=== PATIENT | male | born 1945 | race Caucasian/White ===

== ENCOUNTER → 2020-06-12 | Outpatient (CLI) | payer MEDICARE ==
--- NOTE | 2020-06-12 11:02 | MR ---
EXAMINATION TYPE: MR Prostate wo/w con DATE OF EXAM: 06/12/2020 COMPARISON: None. IMAGE QUALITY: . INDICATION: Elevated PSA PSA: 7.4 ng/ml on November 08, 2019 Recent Biopsy and Date: March 11, 2019 Pathology Report (If Applicable): All levels benign TECHNIQUE: Examination was performed using a 3T MRI without an endorectal coil. Multiparametric imaging was perf ormed with T2 mutliplanar sequences, axial diffusion weighted imaging and dynamic contrast enhanced i maging, utilizing 7 mL intravenous Gadavist gadolinium contrast. FINDINGS: There is no clinically significant cancer identified. PROSTATE VOLUME: 5.1 cm SI x 3.5 cm AP x 6.0 cm LR Vol= 56.1 cc Predicted PSA: 6.732 PSA DENSITY: 0.13 ng/ml/cc Site 1: Assessment Category:5 Size: 21 x 8 x 10 mm Location(s):left base medial Focal markedly hypointense area with hyperintensity on diffusion-weighted images. Reference image 304 series 605 has lateral extension with bulging of capsule and likely extracapsular spread axial image 23 near the origin of left-sided seminal vesicle. Area could reflect low positioning of the medial a spect left seminal vesicle but remains suspicious and repeat sampling is warranted. T2-weighted images show central transitional zone compatible wall heterogeneity without areas of susp icious low T2 signal. Urinary bladder shows mild wall thickening and trabeculation. No concerning pelvic adenopathy. Visual ized osseous structures are intact. Small fat-containing left inguinal hernia incidentally noted. IMPRESSION: A focus of clinically significant cancer is identified. Highest Assessment Category: 5 MRI Stage: T3 N0 M0 based on review of pelvic images. False negative rates for MRI range from 5-20% depending on risk profile. Assessment Categories: 1 ? Very low (clinically significant cancer is highly unlikely to be present) 2 ? Low (clinically significant cancer is unlikely to be present) 3 ? Intermediate (the presence of clinically significant cancer is equivocal) 4 ? High (clinically significant cancer is likely to be present) 5 ? Very high (clinically significant cancer is highly likely to be present)
== END | disposition home or self-care (01) ==
LOC: RADMRIMAIN 09:22
PROVIDERS: ATTEND Urology
DX: R97.20 Elevated prostate specific antigen [PSA] (principal)
CPT/HCPCS: 72197; A9585

== ENCOUNTER → 2022-05-23 | Outpatient (CLI) | payer MEDICARE ==
--- NOTE | 2022-05-23 12:22 | MR ---
EXAMINATION TYPE: MR Prostate wo/w con DATE OF EXAM: 05/23/2022 9:19 AM COMPARISON: MR prostate 06/12/2020. CLINICAL INDICATION:Male, 77 years old with history of C61 PROSTATE CANCER TECHNIQUE: Multi-planar, multi-sequence imaging of the pelvis is performed prior to and following the uncomplicated administration of bolus intravenous gadolinium. CONTRAST: 7 Gadavist Interpretive Criteria: PI-RADS v2.1 SERUM PSA: 26.0 on 09/11/2021. 16.99 on 03/26/2022. SURGICAL PATHOLOGY: 08/07/2020 positive right mid, Patrick 3+3, 6, 03/11/2019, benign FINDINGS: Prostatic dimensions: 6.2 x 4.3 x 4.0 cm. Ellipsoid Volume: 55.84 (PSA density=0.30 ng/mL/mL) CENTRAL GLAND (Central and Transition Zones/CZ+TZ): Multiple bilateral, heterogenous appearing hypertrophic stromal nodules, without suspicious lesion. I ntrinsic high T1 focus within the left central gland likely sequela of prior hemorrhage from biopsy u nder prostatitis. (PI-RADS 2) PERIPHERAL ZONE (PZ): There is a low T2 signal/high DWI/low ADC lesion in the left posterior peripheral gland measuring up to 2.0 x 1.8 x 1.2 cm located in the base/mid gland (previously 1.4 x 1.0 x 1.1 cm on 06/12/2020). This extends along the capsule up to 2.0 x 1.7 cm. There is somewhat ill-defined margins extending from t his peripheral gland to the seminal vesicles on the left. PI-RADS 5. The remainder of the gland demon strates scarring changes without additional suspicious lesion. SEMINAL VESICLES (SV): Diffusely collapse or atrophic, bilaterally. Low signal extends from the left peripheral gland PI-RAD S 5 lesion into the medial aspect of the left seminal vesicles. PERIPROSTATIC TISSUES: Unremarkable. LYMPH NODES: No enlarged pelvic lymph node. REMAINING PELVIS: Circumferential bladder wall thickening with trabeculations likely secondary to chronic bladder outfl ow obstruction. No abnormal free or organized intrapelvic fluid collection. No pathologic bowel dilation or mural thickening. Fat-containing left inguinal hernia. Trace bilateral hydroceles. Scattered clonic diverticula. OSSEOUS STRUCTURES: No suspicious osseous abnormality. IMPRESSION: 1. PI-RADS 5 lesion which has increased in size located in the posterior left peripheral zone extendi ng from mid gland to base and along the capsule. Additional findings suspicious for local invasion in to the left seminal vesicles. This could be further confirmed with gallium-68 PSMA PET/CT. 2. Moderate BPH, estimated gland volume 56 mL. 3. No suspicious osseous lesion. No lymphadenopathy.
== END | disposition home or self-care (01) ==
LOC: RADMRIMAIN 08:22
PROVIDERS: ATTEND Urology
DX: C61 Malignant neoplasm of prostate (principal); N40.0 Benign prostatic hyperplasia without lower urinary tract symptoms
CPT/HCPCS: 72197; A9585

== ENCOUNTER → 2022-07-12 | Outpatient (CLI) | payer MEDICARE ==
--- NOTE | 2022-07-12 16:59 | PE ---
EXAMINATION TYPE: PET CT fusion skull to thigh DATE OF EXAM: 07/12/2022 COMPARISON: MRI prostate May 23, 2022 HISTORY: Prostate cancer TECHNIQUE: Following the intravenous administration of mCi of Ga-68 Illuccix (PSMA),whole body imag es are performed from the skull base to the midthigh. Images are reviewed on the computer in the cor onal, axial, and sagittal planes. Reconstructed rotating images are created on independent workstati on and reviewed on the computer. A noncontrast CT is performed in conjunction with the PET scan. SCAN: Initial Scan FINDINGS: SKULL BASE AND NECK: Normal physiologic uptake in the parotid and submandibular along with the lacri mal glands and salivary glands. No suspicious radiotracer activity. CHEST, MEDIASTINUM, AND HILAR REGION: No suspicious radiotracer activity. ABDOMEN AND PELVIS: Normal mild diffuse uptake in the liver and spleen. Normal uptake in the bilatera l kidneys including cortex. There is nonspecific bowel uptake seen bilaterally. Normal excretion is p resent. There is abnormal hypermetabolic uptake in the left mid base corresponding to the area of concern on recent MRI along the posterior aspect, max SUV is. Adjacent calcification in the midline is redemonst rated. No additional areas of abnormal radiotracer activity including possible pelvic lymph nodes. OSSEOUS STRUCTURES: No areas of abnormal radiotracer activity. OTHER CT: Prominent central parapelvic cyst in the left kidney are seen. Prostate gland is enlarged i n size consistent with BPH. IMPRESSION: PET/CT exam correlates with recent MRI suspicious lesion posterior left peripheral zone mid to basila r level. No abnormal adenopathy or metastatic disease is seen.
== END | disposition home or self-care (01) ==
LOC: RADPETMAIN 11:36
PROVIDERS: ATTEND Radiology Radiation Oncology
DX: C61 Malignant neoplasm of prostate (principal)
CPT/HCPCS: 78815; A9596

== ENCOUNTER → 2023-08-06 | Outpatient (CLI) | payer MEDICARE ==
[2023-08-06 18:56] LABS: Prostate Specific Antigen 0.02 ng/mL (0.000-6.500); Testosterone <10.00 ng/dL (86.98-780.10)
== END | disposition home or self-care (01) ==
LOC: LABWHC1 10:57
PROVIDERS: ATTEND Radiology Radiation Oncology
DX: C61 Malignant neoplasm of prostate (principal)
CPT/HCPCS: 36415; 84153; 84403

== ENCOUNTER 2023-10-10 13:49 | Day surgery (SDC) | payer MEDICARE ==
[2023-10-10] MEDS: LACTATED RINGERS 1,000 ML IV ONE (15:57)
[2023-10-10] MEDS ORDERED: LACTATED RINGERS 1,000 ML IV SCH (15:59)
[2023-10-10] MEDS ORDERED: LIDOCAINE 1% (10MG/ML) FOR IV START INTRADERMA PRN (15:59)
[2023-10-10 16:47] VITALS: TEMP 97
[2023-10-10] MEDS ORDERED: PROPOFOL 10 MG/ML 20 ML VIAL IV ONE (16:48)
--- NOTE | 2023-10-10 17:10 | P.PCN ---
Date of Procedure: 10/10/23 Procedure(s) Performed: BRIEF HISTORY: Patient is a 78-year-old pleasant white male scheduled for an elective colonoscopy as a part of screening for colon cancer. PROCEDURE PERFORMED: Colonoscopy. PREOPERATIVE DIAGNOSIS: Screening for colon cancer. IV sedation per Anesthesia. PROCEDURE: After informed consent was obtained, the patient, was brought into the endoscopy unit. IV sedation was administered by Anesthesia under continuous monitoring. Digital rectal examination was normal. Initially the Olympus CF-160 flexible video colonoscope was then inserted in the rectum, gradually advanced into the cecum without any difficulty. Careful examination was performed as the scope was gradually being withdrawn. Ileocecal valve and the appendiceal orifice were visualized and appeared normal. Prep was excellent. Mucosa of the cecum, ascending colon, transverse colon, descending colon, sigmoid colon, and rectum appeared normal. Retroflexion was performed in the rectum and there is scattered telangiectasia in the distal rectum that were nonbleeding consistent with radiation proctitis.. The patient tolerated the procedure well. 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 RECOMMENDATIONS: Findings of this examination were discussed with the patient as well as his family. He was advised to be on high-fiber diet and avoid straining and constipation..
[2023-10-10 18:06] VITALS: BP 146/77; PULSE 66; RESP 17
== END 2023-10-10 17:45 | disposition home or self-care (01) ==
LOC: ORWHC2ENDO 13:49
PROVIDERS: ATTEND Internal Medicine Gastroenterology
DX: Z12.11 Encounter for screening for malignant neoplasm of colon (principal); K62.7 Radiation proctitis; E78.5 Hyperlipidemia, unspecified; Z79.899 Other long term (current) drug therapy; Z88.5 Allergy status to narcotic agent; Z87.891 Personal history of nicotine dependence; Z98.890 Other specified postprocedural states
CPT/HCPCS: J2704; G0121

== ENCOUNTER 2024-06-13 16:35 | Inpatient (IN) | payer MEDICARE ==
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
[2024-06-13] MEDS: HYDROmorphone 0.5 MG/0.5 ML SYRINGE IVP STA (16:51)
[2024-06-13] MEDS: SODIUM CHLORIDE 0.9% 1,000 ML IV STA (16:51)
[2024-06-13] MEDS: ONDANSETRON 4 MG/2 ML VIAL IVP STA (16:51)
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
[2024-06-13 17:18] LABS: Basophils % (A) 0 %; Eosinophils # (A) 0.1 k/uL (0-0.7); Eosinophils % (A) 1 %; HCT 31.5 % (39.0-53.0); HGB 10.7 gm/dL (13.0-17.5); Lymphocytes # (A) 0.7 k/uL (1.0-4.8); Lymphocytes % (A) 9 %; MCH 32.7 pg (25.0-35.0); MCHC 33.9 g/dL (31.0-37.0); MCV 96.3 fL (80.0-100.0); Mean Platelet Volume 7.7; Monocytes # (A) 0.3 k/uL (0-1.0); Monocytes % (A) 4 %; Neutrophils # (A) 6.4 k/uL (1.3-7.7); Neutrophils % (A) 85 %; Platelet Count 216 k/uL (150-450); RBC 3.27 m/uL (4.30-5.90); WBC 7.5 k/uL (3.8-10.6)
[2024-06-13 17:35] LABS: ALT 20 U/L (4-49); AST 24 U/L (17-59); African American GFR (CKD) >90 (>60 ml/min/1.73 sqM); Albumin 3.5 g/dL (3.5-5.0); Alcohol <10 mg/dL; Alkaline Phosphatase 75 U/L (38-126); Anion Gap 9 mmol/L; Blood Urea Nitrogen 32 mg/dL (9-20); Calcium 8.3 mg/dL (8.4-10.2); Carbon Dioxide 21 mmol/L (22-30); Chloride 106 mmol/L (98-107); Glucose 161 mg/dL (74-99); Non-African American GFR(CKD) 78 (>60 ml/min/1.73 sqM); Potassium 4.4 mmol/L (3.5-5.1); Sodium 136 mmol/L (137-145); Total Bilirubin 0.4 mg/dL (0.2-1.3); Total Protein 6.8 g/dL (6.3-8.2)
[2024-06-13 17:43] LABS: Glucose,Whole Blood 150 mg/dL (70-110)
[2024-06-13 17:49] LABS: Prothrombin Time 10.6 sec (10.0-12.5)
[2024-06-13 18:04] LABS: Partial Thromboplastin Time 18.7 sec (22.0-30.0)
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
[2024-06-13] MEDS ORDERED: ONDANSETRON 4 MG/2 ML VIAL IVP PRN (19:59)
[2024-06-13] MEDS ORDERED: NALOXONE 0.4 MG/ML 1 ML VIAL IV PRN (19:59)
[2024-06-13] MEDS: HYDROmorphone 0.5 MG/0.5 ML SYRINGE IVP PRN (20:53)
[2024-06-13] MEDS: DIPH,PERTUS(ACELL)TETVAC-LF 0.5 ML VIAL IM ONE (20:55)
[2024-06-13] MEDS: SODIUM CHLORIDE 0.9% 1,000 ML IV SCH (20:58)
--- NOTE | 2024-06-13 21:34 | XR ---
EXAMINATION TYPE: XR femur LT, XR tibia fibula LT DATE OF EXAM: 06/13/2024 9:14 PM COMPARISON: None. CLINICAL INDICATION: Male, 79 years old with history of pain; [facility] TECHNIQUE: XR femur LT, XR tibia fibula LT examined in Frontal and lateral projections. FINDINGS: Left femur: No evidence of acute osseous pathology, joint dislocation, or soft tissue swelling. Left tibia/fibula: Cortical step off in the medial tibial plateau suspicious for a minimally displaced fracture. Ankle a ppears intact as visualized. No unexpected radiographic body. IMPRESSION: Minimally displaced fracture of the medial tibial plateau. [facility], , 06/13/2024 9:32 PM
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
[2024-06-14] MEDS: LOSARTAN 50 MG TAB PO SCH (00:35)
[2024-06-14 01:27] LABS: Appearance,Urine Clear (Clear); Bilirubin,Urine Negative (Negative); Blood,Urine Negative (Negative); Color,Urine Light Yellow; Glucose,Urine (UA) Negative (Negative); Ketones,Urine 2+ (Negative); Leukocyte Esterase,Urine Negative (Negative); Nitrite,Urine Negative (Negative); PH, Urine 5.5 (5.0-8.0); Protein,Urine Negative (Negative); Urobilinogen,Urine <2.0 mg/dL (<2.0)
[2024-06-14 01:36] LABS: Specific Gravity,Urine 1.047 (1.001-1.035)
[2024-06-14 01:39] LABS: Amphetamine Screen,Urine Not Detected (NotDetected); Barbiturate Screen,Urine Not Detected (NotDetected); Benzodiazepines Screen,Urine Not Detected (NotDetected); Cocaine Screen,Urine Not Detected (NotDetected); Methadone Screen, Urine Not Detected (NotDetected); Opiate Screen,Urine Detected (NotDetected); Oxycodone Screen, Urine Not Detected (NotDetected); Phencyclidine Screen,Urine Not Detected (NotDetected); Tricyclic Antidepressant,Urine Not Detected (NotDetected); Urn Cannabinoid Scrn Not Detected (NotDetected)
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
[2024-06-14 10:57] LABS: HCT 28.1 % (39.0-53.0); HGB 9.5 gm/dL (13.0-17.5); MCH 32.9 pg (25.0-35.0); MCHC 33.7 g/dL (31.0-37.0); MCV 97.6 fL (80.0-100.0); Mean Platelet Volume 7.8; Platelet Count 201 k/uL (150-450); RBC 2.88 m/uL (4.30-5.90); RDW 12.2 % (11.5-15.5); WBC 6.6 k/uL (3.8-10.6)
[2024-06-14 11:08] LABS: AST 25 U/L (17-59); African American GFR (CKD) 89 (>60 ml/min/1.73 sqM); Albumin 3.4 g/dL (3.5-5.0); Alkaline Phosphatase 65 U/L (38-126); Anion Gap 11 mmol/L; Blood Urea Nitrogen 30 mg/dL (9-20); Calcium 8.3 mg/dL (8.4-10.2); Carbon Dioxide 23 mmol/L (22-30); Chloride 102 mmol/L (98-107); Globulin 3.3 g/dL; Glucose 226 mg/dL (74-99); Magnesium 2.1 mg/dL (1.6-2.3); Non-African American GFR(CKD) 77 (>60 ml/min/1.73 sqM); Potassium 4.1 mmol/L (3.5-5.1); Sodium 136 mmol/L (137-145); Total Bilirubin 0.4 mg/dL (0.2-1.3); Total Protein 6.7 g/dL (6.3-8.2)
[2024-06-14 11:14] LABS: ALT 27 U/L (4-49)
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
[2024-06-14] MEDS: ACETAMINOPHEN TAB 325 MG TAB PO PRN (19:11)
[2024-06-14] MEDS: ATORVASTATIN 20 MG TAB PO SCH (20:54)
[2024-06-14] MEDS: LOSARTAN-HCTZ 50-12.5 MG 1 EACH TAB PO SCH (20:58)
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
[2024-06-15 10:49] LABS: HCT 25.7 % (39.6-50.0); HGB 8.5 g/dL (13.0-17.0); MCH 31.8 pg (27.0-32.0); MCHC 33.1 g/dL (32.0-37.0); MCV 96.3 FL (80.0-97.0); Mean Platelet Volume 9.8 FL (9.5-12.2); NRBC Per 100 WBC 0 X 10*3/uL (0.00-0.01); Platelet Count 144 X 10*3/uL (140-440); RBC 2.67 X 10*6/uL (4.40-5.60); RDW 12.2 % (11.5-14.5); WBC 6.37 X 10*3/uL (4.50-10.00)
[2024-06-15 11:02] LABS: ALT 15 U/L (10-49); AST 23 U/L (14-35); Albumin 3.3 g/dL (3.8-4.9); Albumin/Globulin Ratio 1.03 Ratio (1.60-3.17); Alkaline Phosphatase 59 U/L (41-126); BUN/Creat Ratio 26.57 Ratio (12.00-20.00); Blood Urea Nitrogen 18.6 mg/dL (9.0-27.0); Calcium 8.2 mg/dL (8.7-10.3); Carbon Dioxide 23.5 mmol/L (21.6-31.8); Chloride 104 mmol/L (96-109); Globulin 3.2 g/dL (1.6-3.3); Glucose 174 mg/dL (70-110); Magnesium 2.1 mg/dL (1.5-2.4); Potassium 3.9 mmol/L (3.5-5.5); Sodium 136 mmol/L (135-145); Total Bilirubin 0.5 mg/dL (0.3-1.2); Total Protein 6.5 g/dL (6.2-8.2)
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
[2024-06-16 09:12] LABS: HCT 25.6 % (39.0-53.0); HGB 8.7 gm/dL (13.0-17.5); MCH 32.4 pg (25.0-35.0); MCHC 34.1 g/dL (31.0-37.0); MCV 94.9 fL (80.0-100.0); Mean Platelet Volume 7.8; Platelet Count 184 k/uL (150-450); RDW 12.4 % (11.5-15.5); WBC 7.1 k/uL (3.8-10.6)
[2024-06-16 09:41] LABS: African American GFR (CKD) >90 (>60 ml/min/1.73 sqM); Anion Gap 7 mmol/L; Blood Urea Nitrogen 20 mg/dL (9-20); Calcium 8.4 mg/dL (8.4-10.2); Carbon Dioxide 26 mmol/L (22-30); Chloride 101 mmol/L (98-107); Glucose 256 mg/dL (74-99); Non-African American GFR(CKD) 87 (>60 ml/min/1.73 sqM); Potassium 3.8 mmol/L (3.5-5.1); Sodium 134 mmol/L (137-145)
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
[2024-06-17 01:55] VITALS: RESP 17
[2024-06-17] MEDS ORDERED: DEXTROSE 50% SYRINGE 50 ML IVP PRN ×2 (08:27)
[2024-06-17 09:07] LABS: HCT 24.4 % (39.6-50.0); HGB 7.9 g/dL (13.0-17.0); MCH 31.1 pg (27.0-32.0); MCHC 32.4 g/dL (32.0-37.0); MCV 96.1 FL (80.0-97.0); Mean Platelet Volume 9.9 FL (9.5-12.2); NRBC Per 100 WBC 0 X 10*3/uL (0.00-0.01); Platelet Count 177 X 10*3/uL (140-440); RBC 2.54 X 10*6/uL (4.40-5.60); RDW 12.1 % (11.5-14.5); WBC 6.25 X 10*3/uL (4.50-10.00)
[2024-06-17 09:28] LABS: BUN/Creat Ratio 19.88 Ratio (12.00-20.00); Blood Urea Nitrogen 15.9 mg/dL (9.0-27.0); Calcium 8.3 mg/dL (8.7-10.3); Carbon Dioxide 25.4 mmol/L (21.6-31.8); Chloride 102 mmol/L (96-109); Glucose 173 mg/dL (70-110); Potassium 3.9 mmol/L (3.5-5.5); Sodium 136 mmol/L (135-145)
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
[2024-06-17 12:26] LABS: Glucose,Whole Blood 189 mg/dL (70-110)
[2024-06-17] MEDS: INSULIN ASPART (NovoLOG) 100 UNIT/ML VIAL SQ SCH (13:07)
[2024-06-17 14:02] VITALS: BP 123/65; PULSE 71; TEMP 99.5
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
== END 2024-06-17 14:20 | DRG 605 ==
LOC: EC 16:35 → 5NMEDONC 20:00 → OBSVTOIN 06-16 09:33
PROVIDERS: ADMIT Surgery; ATTEND Surgery
PROC: 0HQ0XZZ Repair Scalp Skin, External Approach (ICD-10-PCS; principal; 2024-06-13)
PROC: 3E0234Z Introduction of Serum, Toxoid and Vaccine into Muscle, Percutaneous Approach (ICD-10-PCS; 2024-06-13)
DX: S01.01XA Laceration without foreign body of scalp, initial encounter (principal); S82.142A Displaced bicondylar fracture of left tibia, initial encounter for closed fracture; D64.9 Anemia, unspecified; S01.81XA Laceration without foreign body of other part of head, initial encounter; E78.5 Hyperlipidemia, unspecified; S00.11XA Contusion of right eyelid and periocular area, initial encounter; H91.90 Unspecified hearing loss, unspecified ear; I10 Essential (primary) hypertension; V86.92XA Unspecified occupant of snowmobile injured in nontraffic accident, initial encounter; Z79.82 Long term (current) use of aspirin; Z79.899 Other long term (current) drug therapy; Z82.49 Family history of ischemic heart disease and other diseases of the circulatory system; Z85.828 Personal history of other malignant neoplasm of skin; Z87.891 Personal history of nicotine dependence; Z88.5 Allergy status to narcotic agent; Z23 Encounter for immunization; Z85.46 Personal history of malignant neoplasm of prostate; Z87.19 Personal history of other diseases of the digestive system
CPT/HCPCS: 36415; 70450; 70486; 71045; 71260; 72125; 72170; 74177; 80048; 80053; 80306; 80320; 81003; 83605; 83735; 84484; 85025; 85027; 85610; 85730; 86850; 86900; 86901; 90471; 90715; 93005; 96361; 96365; 96375; 96376; 99291

== ENCOUNTER → 2024-06-29 | Outpatient (CLI) | payer MEDICARE ==
--- NOTE | 2024-06-29 09:28 | CT ---
EXAMINATION TYPE: CT brain wo con DATE OF EXAM: 06/29/2024 COMPARISON: 06/13/2024 CLINICAL INDICATION: Male, 79 years old with history of S01.01XD LACERTION; PHH, Recent fall, lacerat ion RT forehead CT DLP: 1098.20 mGycm Automated exposure control for dose reduction was used. FINDINGS: Interval significant reduction in the degree of right frontal scalp hematoma. Mild to moderate degene rative change. Hypoattenuation in the white matter compatible with remote microvascular ischemia. Changes of sinusitis most marked in left maxillary sinus. Orbits are symmetric. Craniocervical juncti on is maintained. IMPRESSION: 1. INTERVAL MARKED REDUCTION IN DEGREE OF SOFT TISSUE HEMATOMA OVERLYING THE RIGHT FRONTAL BONE. NO C ALVARIAL FRACTURE. SOFT TISSUE LACERATION SUSPECTED. [facility], , 06/29/2024 9:26 AM
== END | disposition home or self-care (01) ==
LOC: RADCTMAIN 08:40
PROVIDERS: ATTEND Family Medicine
DX: S01.01XD Laceration without foreign body of scalp, subsequent encounter (principal); W19.XXXD Unspecified fall, subsequent encounter
CPT/HCPCS: 70450

== ENCOUNTER → 2024-08-05 | Outpatient (CLI) | payer MEDICARE ==
[2024-08-05 15:37] LABS: Prostate Specific Antigen 0.09 ng/mL (0.000-6.500)
== END | disposition home or self-care (01) ==
LOC: LABWHC1 09:03
PROVIDERS: ATTEND Radiology Radiation Oncology
DX: C61 Malignant neoplasm of prostate (principal)
CPT/HCPCS: 36415; 84153; 84403